=== PATIENT | male | born 1970 | race Two or more races ===

== ENCOUNTER 2016-09-07 19:05 | Emergency (ER) | payer MEDICAID, MEDICARE ==
[~2016-09-07] VITALS: Ht 190.5 cm; Wt 115.9 kg
[~2016-09-07 19:05] MED LIST: FLE10 PO; ULTRAM50 MG PO; [UNRECOGNIZED DRUG - CODE] PO
[2016-09-07 19:10] VITALS: BP 156/104; PULSE 104; RESP 16; O2SAT 96
--- NOTE | 2016-09-07 20:04 | ED.REPORT ---
HPI-Back Pain 40 and Over Date of Service Sep 07, 2016 ED Provider: Herbert Mosquera MD Patient is a 46 year old male with a history of chronic back pain who presents to ED complaining of acute back pain for the past 3 days. Patient reports having severe spasms of his back, to the point where he is barely able to ambulate. He sometimes becomes stuck when trying to walk, due to the pain. He rates his pain at 10/10. The patient states that 2 months ago he took a wrong step and has been struggling with back pain since that time. However his pain over the past few days has been different in character than what he previously experienced with back pain. He reports using hot and cold packs as well as warm baths for his pain. Patient also takes Hydrocodone and Gabapentin for his pain. The patient is currently in physical therapy. He is unable to take NSAIDs due to a history of a gastric ulcer. His pain radiates down his right leg. 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 No high-grade levels of central canal or foraminal stenosis". He is scheduled to discuss results on September 15 with his PCP. Since his MRI his pain increased in severity, due to his severe spasms. Patient denies extremity pain, bowel or bladder incontinence , weakness of his extremities, or saddle numbness. Patient also admits to feeling nauseated. Nursing Notes Stated Complaint: LOWER BACK SPASIMS Chief Complaint: Back Pain or Injury Nursing Notes Reviewed: Yes Allergies: Coded Allergies: No Known Drug Allergies (Verified Allergy, Unknown, 09/07/16) Scheduled Cyclobenzaprine-Expunged Drug, Do Not Renew! (Flexeril-Expunged Drug, Do Not Renew!) 10 Mg Tablet 10 MG PO TID PRN FOR MUSCLE SPASM Nebivolol-Expunged Drug, Do Not Renew! (Nebivolol-Expunged Drug, Do Not Renew!) 5 Mg Tablet 5 MG PO AM Tramadol-Expunged Drug, Do Not Renew! (Ultram-Expunged Drug, Do Not Renew!) 50 Mg Tab 50 MG PO BID PRN General Time Seen by MD: 19:27 Chief Complaint Back pain Hx Obtained From: Patient Arrived By: Walk-in Sudden in Onset?: No Onset Occurred: More than a week ago... (2 months) Past Medical History Past Medical History gastric ulcer Reports: GERD, Hypertension Past Surgical History perforated ulcer repair Smoking History Current Every Day Smoker Social History Alcohol Use: "Social" Other Social History: Local resident Ambulatory Status Independent Review of Systems GI: Reports: Nausea Musculoskeletal: Reports: Back pain, Extremity pain Neurologic: Reports: Weakness, Denies: Bladder dysfunction, Bowel dysfunction, Numbness Complete sys rev & neg: except as marked. Physical Exam Initial Vital Signs Vital Signs (First) Date Time Temp Pulse Resp B/P Pulse Ox O2 Delivery O2 Flow Rate FiO2 09/07/16 19:10 36.4 104 16 156/104 96 Room Air Initial VS: Reviewed Head / Eyes: Atraumatic, Normocephalic, PERRL ENT: Conjunctiva normal, No scleral icterus Neck: Supple, Non-tender, Full range of motion Skin: Warm, Dry, No cyanosis Psychiatric: Mood/affect normal, Behavior normal, Normal thought content General/Constitutional: Awake, Alert, No acute distress Respiratory / Chest: No respiratory distress Cardiovascular: Heart rate NL Abdomen: Soft, Non-tender Back: No midline vertebral tend Flank / Spine / Paraspinal: Positive: Lumbar paraspinal tend... Neurologic: Oriented X3, Speech NL, No motor deficits, No sensory deficits, CN II - XII intact, Reflexes equal bilat strength intact in the bilateral lower extremities no saddle anesthesia Lower Extremity / Pelvis / MS: No deformity, Neurologic intact, Vascular intact Rectum / Perineum: Sphincter tone NL Re-Eval/Medical Decision Med Decision/Clinical Course Patient is a 46 year old male with a history of chronic back pain who presents to ED complaining of acute back pain for the past 3 days. Patient reports having severe spasms of his back, to the point where he is barely able to ambulate. He sometimes becomes stuck when trying to walk, due to the pain. He rates his pain at 10/10. The patient states that 2 months ago he took a wrong step and has been struggling with back pain since that time. However his pain over the past few days has been different in character than what he previously experienced with back pain. He reports using hot and cold packs as well as warm baths for his pain. Patient also takes Hydrocodone and Gabapentin for his pain. The patient is currently in physical therapy. He is unable to take NSAIDs due to a history of a gastric ulcer. His pain radiates down his right leg. 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 No high-grade levels of central canal or foraminal stenosis". He is scheduled to discuss results on September 15 with his PCP. Since his MRI his pain increased in severity, due to his severe spasms. Patient denies extremity pain, bowel or bladder incontinence , weakness of his extremities, or saddle numbness. Patient also admits to feeling nauseated. Our primary and secondary assessment reveals an awake, alert patient in no acute distress. Hemodynamically stable and afebrile. Exam reveals normal neurologic exam of the lower extremities. Given this immunocompetent, afebrile, patient's history and exam, suspect muscle strain or spasm. No concerning signs or symptoms suggestive of cauda equina, cord compression, epidural abscess or other neurologic emergency. History not suggestive of referred intraabdominal pathology or vascular emergency. There is no history of significant trauma, fever, incontinence, unexplained weight loss, cancer history, long-term steroid use or IV drug use. And given the patient's young age, I do not feel further imaging is warranted at this time Given the patient's workup, feel they are safe for discharge with conservative management. The patient was given muscular Toradol and sublingual Zofran for symptom control while here in the ER. He reported symptomatic improvement. I have discussed with the patient results of workup, indications for return including: motor weakness in the lower extremities and/or bowel or bladder incontinence. Also emphasized the need for PCP follow up. They understand and agree with the plan. 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 No high-grade levels of central canal or foraminal stenosis. 09/02/2016 Re-Evaluation/Progress : Time of Eval: 21:10 Patient Status: Condition improved Re-Evaluation/Progress Note: Patient understands and agrees with the plan to be discharged home. Discharge instructions and follow-up discussed. All questions were addressed. Return to the ED warnings given. Counseled Regarding: Diagnosis, Need for follow-up, When/why to return to ED Discharge & Departure Impression: Primary Impression: Low back pain Chronicity: acute Back pain laterality: bilateral Sciatica presence: unspecified whether sciatica present Qualified Code: M54.5 - Low back pain Additional Impressions: Nausea Sciatica Laterality: unspecified laterality Qualified Code: M54.30 - Sciatica, unspecified side Disposition: Home Discharge Condition All VS Reviewed: Yes Condition: Stable Patient Instructions: Acute Low Back Pain (ED) Additional Instructions: Thank you for seeking care at the emergency room. It is difficult for us to make definitive diagnoses in the ED but we believe that you are experiencing low back strain. Our primary goal today in the ED was to evaluate you for any life-threatening conditions. Your evaluation was reassuring. Alternate hot and cold packs on your back. Try to remain active and stretch often. Being sedentary only worsens back pain. Continue to take your prescribed pain medications as directed. You should follow-up with your primary doctor as planned. You should return to the ED immediately if you develop worsening back pain, numbness or weakness of your extremities, bladder or bowel incontinence or any other concerning signs or symptoms. Thank you for letting us partake in your care today. Referrals: Michelle Le PA-C Attestation Portions of this note were transcribed by Aileen Reno. I, Dr. Mosquera personally performed the history, physical exam and medical decision-making; I reviewed and confirmed the accuracy of the information in the transcribed note. Signed by: Mali Ralph, 09/07/2016 [id number] copies to: Michelle Le PA-C, Beck O MD Sep 07, 2016 20:04 Aileen Reno Sep 07, 2016 21:06
[2016-09-07 21:29] VITALS: BP 124/67; PULSE 76; RESP 18; O2SAT 99
== END 2016-09-07 21:29 | disposition home or self-care (01) ==
LOC: SED 19:05
DX: M54.40 Lumbago with sciatica, unspecified side (principal); R11.0 Nausea; K21.9 Gastro-esophageal reflux disease without esophagitis; I10 Essential (primary) hypertension; F17.200 Nicotine dependence, unspecified, uncomplicated
CPT/HCPCS: 96372; 99283; J1885